=== PATIENT | male | born 1950 | race Two or more races ===

== ENCOUNTER 2023-01-22 14:10 | Emergency (ER) | payer OTHER ==
[~2023-01-22] VITALS: Ht 170.2 cm; Wt 79.4 kg
[2023-01-22] MEDS ORDERED: METOPROLOL SUCC25 MG PO (14:23)
[2023-01-22] MEDS ORDERED: AVAPRO300 MG PO (14:26)
== END 2023-01-22 18:09 | disposition home or self-care (01) ==
LOC: ER 14:10
DX: R05.8 Other specified cough (principal); J40 Bronchitis, not specified as acute or chronic; I10 Essential (primary) hypertension

== ENCOUNTER 2024-04-05 06:39 | Day surgery (SDC) | payer OTHER ==
[2024-03-29 09:08] LABS: HEMATOCRIT 44.1 % (39.0-48.0); MEAN CELL VOLUME 83.2 fL (80.0-100.00); MEAN CORPUSCULAR HEMOGLOBIN 28.2 pg (27.00-32.0); MEAN CORPUSCULAR HGB CONC 33.9 g/dl (32.0-36.0); PLATELET COUNT 140 K/uL (150-450); RED CELL DISTRIBUTION WIDTH 14.8 % (11.5-14.5)
[2024-03-29 09:13] LABS: URINE APPEARANCE Clear; URINE BILIRRUBIN Negative (NEGATIVE); URINE BLOOD Negative; URINE COLOR Yellow; URINE GLUCOSE Negative (NEGATIVE); URINE LEUKOCYTE Negative; URINE NITRATE Negative; URINE PROTEIN Negative (NEGATIVE); URINE UROBILINOGEN 0.2 E.U./dl
[2024-03-29 09:17] LABS: URINE EPITHELIAL CELLS 1.5 uL (0.0-38.8); URINE RBC 2.5 uL (0.0-20.8)
[2024-03-29 09:22] LABS: URINE BACTERIA 2.5 uL (0.0-1933); URINE WBC 0.6 uL (0.0-23.2)
[2024-03-29 09:58] LABS: BILIRUBIN TOTAL 0.45 mg/dL (0.3-1.2); CALCIUM 9.6 mg/dL (8.5-10.1); CREATININE SERUM 0.76 mg/dL (0.70-1.30); GFR 100.53; GLOBULINA 3.7 G/DL (2.4-3.5); POTASSIUM 5.22 mEq/L (3.5-5.1); TOTAL PROTEIN 7.7 gm/dL (6.4-8.2)
[2024-03-29 10:13] LABS: INR 1.04; PARTIAL THROMBOPLASTIN TIME 29.9 SECONDS (22.0-34.0); PROTHROMBIN TIME 10.9 SECONDS (9.0-11.5)
[~2024-04-05] VITALS: Ht 170.2 cm; Wt 34.9 kg
[~2024-04-05 06:39] MED LIST: AVAPRO300 MG PO; METOPROLOL SUCC25 MG PO
[2024-04-05] MEDS ORDERED: CEFAZOLIN SODIUM 1,000 MG VIAL ONE (08:02)
[2024-04-05] MEDS ORDERED: KETOROLAC TROMETHAMINE 30 MG VIAL ONE (08:54)
[2024-04-05] MEDS ORDERED: KETOROLAC TROMETHAMINE 30 MG VIAL IV ONE (10:00)
[2024-04-05] MEDS ORDERED: KETOROLAC TROMETHAMINE 30 MG VIAL IM ONE (10:00)
[2024-04-05] MEDS ORDERED: CEFAZOLIN SODIUM 1,000 MG in 0.9 % SODIUM CHLORIDE 50 ML IV ONE (10:00)
[2024-04-05] MEDS ORDERED: SUGAMMADEX SODIUM 200 MG/2 ML VIAL IV ONE ×2 (11:01→11:15)
== END 2024-04-05 14:15 | disposition home or self-care (01) ==
LOC: CIR.AMB 06:39
PROVIDERS: ATTEND Orthopaedic Surgery
DX: M75.121 Complete rotator cuff tear or rupture of right shoulder, not specified as traumatic (principal); M75.21 Bicipital tendinitis, right shoulder; M24.111 Other articular cartilage disorders, right shoulder; I10 Essential (primary) hypertension

== ENCOUNTER 2024-10-10 20:17 | Emergency (ER) | payer OTHER ==
[~2024-10-10] VITALS: Ht 162.6 cm; Wt 72.6 kg
[2024-10-10 20:30] VITALS: BP 134/76; O2SAT 96
[2024-10-10] MEDS ORDERED: DEXAMETHASONE SODIUM PHOSPHATE 4 MG/ML VIAL IM STA (21:35)
[2024-10-10] MEDS ORDERED: DEXAMETHASONE SODIUM PHOSPHATE 4 MG/ML VIAL ONE (21:46)
== END 2024-10-10 21:49 | disposition home or self-care (01) ==
LOC: ER 20:20
DX: M25.562 Pain in left knee (principal); I10 Essential (primary) hypertension